=== PATIENT | female | born 1940 | race Two or more races ===

== ENCOUNTER 2017-03-23 09:57 | Emergency (ER) | payer SELFPAY ==
[2017-03-23 10:40] LABS: BASOPHILS # (AUTO) 0.1 10^3/uL (0.0-0.1); BASOPHILS % (AUTO) 0.7 %; EOSINOPHILS # (AUTO) 0.3 10^3/uL (0.0-0.7); HGB - HEMOGLOBIN 15.9 g/dL (12.0-16.0); LYMPHOCYTES # (AUTO) 2.2 10^3/uL (1.5-3.5); LYMPHOCYTES % (AUTO) 23.6 %; MEAN CORPUSCULAR HEMOGLOBIN 29.7 pg (27.0-31.0); MEAN CORPUSCULAR HGB CONC 33.7 g/dL (32.0-36.0); MONOCYTES # (AUTO) 0.6 10^3/uL (0.0-1.0); MONOCYTES % (AUTO) 6.6 %; NEUTROPHILS # (AUTO) 6.2 10^3/uL (1.5-6.6); NEUTROPHILS % (AUTO) 66.1 %; NUCLEATED RED BLOOD CELLS AUTO 0.1 /100WBC; RED BLOOD COUNT 5.34 10^6/uL (4.20-5.40); RED CELL DISTRIBUTION WIDTH 13.8 % (12.0-15.0); UNCORRECTED WHITE BLOOD COUNT 9.4 x10^3/uL; WHITE BLOOD COUNT 9.4 x10^3/uL (4.8-10.8)
[2017-03-23 10:52] LABS: BILIRUBIN,TOTAL 0.5 mg/dL (0.2-1.0); CALCIUM 9.3 mg/dL (8.5-10.3); CREATININE 0.9 mg/dL (0.4-1.0); POTASSIUM 4.1 mmol/L (3.5-5.0); TOTAL PROTEIN 7.9 g/dL (6.7-8.2)
--- NOTE | 2017-03-23 11:32 | XRAY Preliminary Report ---
Exam: XR CHEST 1 VIEW IMPRESSION: No consolidation evident. [facility] SITE ID: [id number]
--- NOTE | 2017-03-23 11:34 | XRAY Report ---
EXAM: CHEST RADIOGRAPHY EXAM DATE: 03/23/2017 11:19 AM. CLINICAL HISTORY: Chest pain. COMPARISON: None. TECHNIQUE: 1 view. FINDINGS: Lungs/Pleura: No focal opacities evident. No pleural effusion. No pneumothorax. Mediastinum: Within exam limitations, the cardiomediastinal contour is normal. Faint right paratrache al opacity is likely from normal great vessels. Other: None. IMPRESSION: No consolidation evident. [facility] Referring Provider Line: [phone] SITE ID: [id number]
--- NOTE | 2017-03-23 11:45 | ED Physician Documentation ---
History of Present Illness - Stated complaint Stated Complaint: SHOULDER PX/UNABLE TO SLEEP - Chief complaint Chief Complaint: General - History obtained from History obtained from: Patient - History of Present Illness Timing: Other (Anxiety 15 days ago and left shoulder pain 8 days go) Radiates to: none Review of Systems Constitutional: denies: Fever, Weight Loss Eyes: denies: Loss of vision, Discharge Ears: denies: Loss of hearing Nose: denies: Rhinorrhea / runny nose Throat: denies: Oral lesions / sores, Sore throat Cardiac: denies: Chest pain / pressure, Palpitations, Calf pain Respiratory: denies: Dyspnea, Cough, Wheezing GI: reports: Nausea. denies: Abdominal Pain, Vomiting, Diarrhea : denies: Dysuria, Frequency Skin: denies: Rash, Lesions Musculoskeletal: reports: Joint pain (left shoulder). denies: Back pain Neurologic: denies: Generalized weakness, Focal weakness, Numbness PD PAST MEDICAL HISTORY - Past Medical History Past Medical History: Yes Cardiovascular: Hypertension, [place] (5 years ago ) - Past Surgical History Past Surgical History: Yes Cardiovascular: Coronary stent - Present Medications Home Medications: Ambulatory Orders Medication Instructions Recorded Confirmed Lisinopril 20 mg PO BID 07/14/14 07/14/14 Metoprolol Tartrate 100 mg PO DAILY 07/14/14 07/14/14 Ondansetron [Zofran] 4 mg PO Q6H PRN #10 tablet 07/14/14 Sulfamethoxazole/Trimethoprim 1 each PO BID #14 tablet 07/14/14 [Bactrim Ds Tablet] diazePAM [Diazepam] 5 mg PO DAILY 07/14/14 07/14/14 clonazePAM [KlonoPIN] 0.5 mg PO BID PRN #7 tablet 03/23/17 - Allergies Allergies/Adverse Reactions: Allergies Allergy/AdvReac Type Severity Reaction Status Date / Time No Known Drug Allergies Allergy Verified 07/14/14 19:14 - Social History Does the pt smoke?: No Smoking Status: Never smoker - POLST Patient has POLST: No PD ED PE NORMAL - General General: Alert and oriented X 3 - HEENT HEENT: PERRL, EOMI, Moist mucous membranes - Neck Neck: No bony TTP - Cardiac Cardiac: RRR, No murmur, No gallop - Abdomen Abdomen: Normal bowel sounds, Soft - Female Female : Deferred - Back Back: No CVA TTP - Derm Derm: Normal color, Warm and dry, No rash - Extremities Extremities: No deformity, No edema, No calf tenderness / cord - Neuro Neuro: Alert and oriented X 3 Eye Opening: Spontaneous Motor: Obeys Commands Verbal: Oriented GCS Score: 15 - Psych Psych: Normal mood Results - Vitals Vitals: Vital Signs - 24 hr 03/23/17 03/23/17 03/23/17 10:14 11:21 12:20 Temperature 35.8 C L 36.8 C Heart Rate 49 L 48 L 49 L Respiratory 16 19 16 Rate Blood Pressure 190/105 H 183/91 H 190/103 H O2 Saturation 96 97 97 Oxygen O2 Source Room air - EKG (time done) 1136 Rate: Rate (enter#), Gregg Rhythm: Sinus bradycardia [place]: Normal Intervals: Normal [place], QRS normal. No: Prolonged QT QRS: Normal Ischemia: Non specific changes - Labs Labs: Laboratory Tests 03/23/17 03/23/17 03/23/17 10:34 10:34 10:34 WBC 9.4 RBC 5.34 Hgb 15.9 Hct 47.0 MCV 88.0 MCH 29.7 MCHC 33.7 RDW 13.8 Plt Count 226 MPV 9.0 Neut # 6.2 Lymph # 2.2 [place] # 0.6 Eos # 0.3 Baso # 0.1 Absolute Nucleated RBC 0.01 Nucleated RBC % 0.1 Sodium 136 Potassium 4.1 Chloride 102 Carbon Dioxide 24 Anion Gap 10.0 BUN 18 Creatinine 0.9 Estimated GFR (MDRD) 61 L Glucose 128 H Calcium 9.3 Total Bilirubin 0.5 AST 24 ALT 21 Alkaline Phosphatase 75 Troponin I < 0.04 Total Protein 7.9 Albumin 4.0 Globulin 3.9 Albumin/Globulin Ratio 1.0 Lipase 30 - Rads (name of study) CXR Radiology: Final report received, EMP read contemporaneously PD MEDICAL DECISION MAKING - ED course Complexity details: d/w patient ED course: Pt has a hx of CAD but states that her symptoms are not like her prior [place]. ECG is non-diagnostic. She has had the symptoms for the past 8 days. Trop is neg. I doubt this is ACS. Discussed with her. will refill a couple days of her meds but she was instructed to follow up with her PCM in [place] for a full refill Departure - Departure Disposition: Home, Self Care Clinical Impression: Anxiety Condition: Good Record reviewed to determine appropriate education?: Yes Instructions: ED Panic Attack Follow-Up: Primary,cre provider [Other] Prescriptions: clonazePAM [KlonoPIN] 0.5 mg PO BID PRN #7 tablet PRN Reason: Anxiety Print Language: Vietnamese
[2017-03-23 12:59] VITALS: BP 179/92
== END 2017-03-23 12:58 | disposition home or self-care (01) ==
LOC: ED 09:57
DX: F41.9 Anxiety disorder, unspecified (principal); I10 Essential (primary) hypertension; I25.2 Old myocardial infarction; R00.1 Bradycardia, unspecified; Z95.820 Peripheral vascular angioplasty status with implants and grafts
CPT/HCPCS: 71010; 80053; 83690; 84484; 85025; 93005; 99283; 99284